=== PATIENT | female | born 2000 | race African-American/Black ===

== ENCOUNTER 2019-06-15 10:03 | Outpatient (CLI) | payer OTHER, MEDICAID, SELFPAY ==
--- NOTE | ~2019-06-15 | NM_ITS ---
EXAMINATION: NM hepatobiliary w pharm DATE: 06/15/2019 14:33 INDICATION: Abdominal pain. COMPARISON: None. TECHNIQUE: 5.27 mCi Tc-99m mebrofenin (Choletec) was administered intravenously. Scintigraphic image s of the abdomen were obtained for one hour. Then, 2.5 mcg sincalide (Kinevac) IV was administered, a nd imaging was continued for 30 minutes. FINDINGS: There is normal clearance of radiotracer from the blood pool. There is homogeneous tracer u ptake by the liver. Activity progresses to the bowel and gallbladder. Gallbladder ejection fraction (GBEF) was less than 10%. Note that most patients with gallbladder dysfunction have GBEF < 35%, which overlaps with the broad normal range of 10-90%. IMPRESSION: 1. Low gallbladder ejection fraction, consistent with gallbladder dysfunction and/or chronic cholecy stitis. Reviewed, dictated and finalized at location A. SANE IMPRESSION: 1. Low gallbladder ejection fraction, consistent with gallbladder dysfunction and/or chronic cholecystitis.
== END 2019-06-15 10:04 | disposition home or self-care (01) ==
LOC: ANHIMG 10:04
PROVIDERS: PCP Internal Medicine; Visit Provider Internal Medicine
DX: R10.9 Unspecified abdominal pain (principal)
CPT/HCPCS: 78227; A9537; J2805

== ENCOUNTER 2019-07-26 16:50 | Emergency (ER) | payer OTHER, MEDICAID, SELFPAY ==
[2019-07-26] VITALS (10 sets, daily range): BP systolic 122–155; BP diastolic 82–101; PULSE 65–87; RESP 16–18; TEMP 37.1; O2SAT 84–100
[2019-07-26] MEDS: SODIUM CHLORIDE 0.9% IV 1,000 ML 999 ML IV CONT ×2 (17:35→18:05)
[2019-07-26 17:44] LABS: Basophils Absolute Auto 0.1 K/mm3 (0.0-0.1); Basophils Percent Auto 0.8 % (0.2-1.2); Eosinophils Absolute Auto 0.9 K/mm3 (0-0.3); Eosinophils Percent Auto 6.8 % (0-4.4); Hematocrit 40.2 % (37.0-47.0); Hemoglobin 13.6 g/dL (12.0-15.0); Immature Granulocyte Percent A 0.8 % (0-0.5); Lymphocytes Absolute Auto 2.67 K/mm3 (0.9-3.2); Mean Corpuscular HGB Conc 33.8 g/dl (32-36); Mean Corpuscular Hemoglobin 26.4 pg (26-34); Mean Corpuscular Volume 78.1 fl (80-100); Mean Platelet Volume 10.7 fl (7.4-10.4); Monocytes Absolute Auto 0.8 K/mm3 (0.1-0.6); Monocytes Percent Auto 6.1 % (2.6-8.5); Neutrophils Absolute Auto 8.2 K/mm3 (1.3-6.7); Neutrophils Percent Auto 64.5 % (45.5-73.1); Platelet Count Result 337 k/mm3 (150-375); Red Blood Count 5.15 M/mm3 (4.2-5.4); Red Cell Distribution Width 13.3 % (11.5-14.5); White Blood Count 12.7 K/mm3 (4.5-10.0)
[2019-07-26 17:49] LABS: Add Urine Microscopic? YES; Appearance Urine Clear (Clear); Bacteria Urine Trace /hpf; Bilirubin Urine Negative (Negative); Blood Urine Negative (Negative); Color Urine Yellow (Yellow); Glucose Urine UA 1+ mg/dL (Negative); Ketones Urine Negative (Negative); Leukocyte Esterase Ur Negative LEU/UL (Negative); Mucus Urine Rare /lpf; Nitrate Urine Negative (Negative); Protein Urine Negative (Negative); RBC Urine 0-2 /hpf (0-2); Specific Grav Ur 1.018 (1.001-1.035); Squamous Epithelial Cell Urine Many /hpf (Few); Urobilinogen Urine Negative mg/dL (<2.0); WBC Urine 0-3 /hpf
[2019-07-26 17:54] LABS: Alanine Aminotransferase 19 U/L (4-35); Albumin Level 4.1 g/dL (3.5-5.1); Alkaline Phosphatase 109 U/L (38-126); Aspartate Amino Transferase 22 U/L (14-36); Bilirubin,Total 0.2 mg/dL (0.2-1.3); Blood Urea Nitrogen 12 mg/dL (7-17); Calcium 9.1 mg/dL (8.4-10.2); Carbon Dioxide 26 mmol/L (22-30); Chloride 102 mmol/L (98-107); Estimated CRCL calculation 173 ml/min; Estimated Glomerular Filt Rate > 60; Glucose 187 mg/dL (65-105); Lipase 39 U/L (23-300); Potassium 3.8 mmol/L (3.4-5.0); Sodium 136 mmol/L (137-145)
[2019-07-26] MEDS: ONDANSETRON INJ 4 MG/2 ML VIAL IV PUSH (18:04)
--- NOTE | 2019-07-26 18:07 | ED.ABDPAIN ---
HPI - Abdominal Pain General Chief Complaint: Abdominal Pain <Ubaldo Hayward PA-C - Last Filed: 07/26/19 19:55> Stated Complaint: abdominal pain <Ubaldo Hayward PA-C - Last Filed: 07/26/19 19:55> Time Seen by Provider: 07/26/19 17:14 <Ubaldo Hayward PA-C - Last Filed: 07/26/19 19:55> History of Present Illness HPI narrative: Patient is a 19 yo female who presents with nausea and vomiting off and on for months. Patient is scheduled to see surgery. patient notes upper abdominal pain on the right side. denies rectal bleeding or diarrhea. has not taken anything for her symptoms <Ubaldo Hayward PA-C - Last Filed: 07/26/19 19:55> Related Data Home Medications: Home Medications Medication Instructions Recorded Confirmed albuterol sulfate 2.5 mg INHALATION Q4-6H PRN 07/08/19 albuterol sulfate 90 mcg/actuation 1 puff INHALATION Q4H PRN 07/08/19 aerosol inhaler <Ubaldo Hayward PA-C - Last Filed: 07/26/19 19:55> Allergies/Adverse Reactions: Allergies Allergy/AdvReac Type Severity Reaction Status Date / Time No Known Allergies Allergy Verified 07/26/19 17:15 <Ubaldo Hayward PA-C - Last Filed: 07/26/19 19:55> Review of Systems Review of Systems: All systems reviewed & are unremarkable except as noted in HPI and below <Ubaldo Hayward PA-C - Last Filed: 07/26/19 19:55> [facility] Past Medical History Medical History: Medical History Biliary dyskinesia <Ubaldo Hayward PA-C - Last Filed: 07/26/19 19:55> Surgical History Surgical History: Surgical History History of tonsillectomy <Ubaldo Hayward PA-C - Last Filed: 07/26/19 19:55> Family History Family History: Family History (Updated 07/08/19 @ 15:43 by Fiorella Smith) Unknown Diabetes mellitus <Ubaldo Hayward PA-C - Last Filed: 07/26/19 19:55> Social History Social History: Social History Smoking status: Never smoker Alcohol intake: never Additional occupation/education comments: [employer] Gender identity (if verbalized by the patient): Female <MARYANNE Prado Last Filed: 07/26/19 19:55> Exam Const: General: no acute distress and alert <MARYANNE Prado Last Filed: 07/26/19 19:55> Orientation/consciousness: patient oriented x3 <Ubaldo Hayward PA-C Last Filed: 07/26/19 19:55> HENMT: Head: normal to inspection <MARYANNE Prado Last Filed: 07/26/19 19:55> Eyes: Conjunctivae: conjunctivae normal <MARYANNE Prado Last Filed: 07/26/19 19:55> Pupils: Equal, round and reactive pupils present <MARYANNE Prado Last Filed: 07/26/19 19:55> Resp: Effort & Inspection: normal respiratory effort <MARYANNE Prado Last Filed: 07/26/19 19:55> Auscultation: clear to auscultation bilaterally <MARYANNE Prado Last Filed: 07/26/19 19:55> Cardio: Rate: regular rate <MARYANNE Prado Last Filed: 07/26/19 19:55> Rhythm: regular rhythm <MARYANNE Prado Last Filed: 07/26/19 19:55> GI: GI Palp: Yes Soft to palpation <MARYANNE Prado Last Filed: 07/26/19 19:55> Other: patient with mild tenderness of the abdomen in the upper quadrants no rebound or guarding <MARYANNE Prado Last Filed: 07/26/19 19:55> : General: Yes no CVA tenderness <MARYANNE Prado Last Filed: 07/26/19 19:55> Skin: General skin exam: normal color <MARYANNE Prado Last Filed: 07/26/19 19:55> Rashes: no rashes <MARYANNE Prado Last Filed: 07/26/19 19:55> Neuro: General: patient oriented x3 and moves all extremities <Ubaldo Hayward PA-C - Last Filed: 07/26/19 19:55> Extrem: General: normal to inspection <MARYANNE Prado Last Filed: 07/26/19 19:55> Psych: Appearance: grossly no
== END 2019-07-26 20:01 | disposition home or self-care (01) ==
PROVIDERS: Emergency Medicine Emergency Medical Services; Emergency Provider Emergency Medicine; PCP Internal Medicine
DX: R10.11 Right upper quadrant pain (principal); K82.8 Other specified diseases of gallbladder
CPT/HCPCS: 36415; 80053; 81001; 81025; 83690; 85025; 96361; 96365; 96375; 99284; J0131; J2405; J7030

== ENCOUNTER 2019-08-09 07:38 | Outpatient (CLI) | payer OTHER, MEDICAID, SELFPAY ==
--- NOTE | ~2019-08-09 | US_ITS ---
US abdomen limited DATE: 08/09/2019 08:15 INDICATION: Right upper quadrant abdominal pain TECHNIQUE: Real-time imaging of liver, pancreas, gallbladder areas, Doppler analysis COMPARISON: 06/15/2019 radionuclide hepatobiliary scan FINDINGS: No gallstones or gallbladder wall thickening or abnormal pericholecystic fluid collection. Negative sonographic Davies's sign. The common bile duct measures 3.8 mm, within normal range. Hepatic steatosis. Normal hepatic portal venous flow direction. No pancreatic mass lesion is evident. IMPRESSION: Hepatic steatosis Reviewed, dictated and finalized at [facility]. Reviewed, dictated and finalized at location A. IMPRESSION: Hepatic steatosis
== END 2019-08-09 07:39 | disposition home or self-care (01) ==
PROVIDERS: PCP Internal Medicine; Visit Provider Surgery
DX: R10.11 Right upper quadrant pain (principal); R94.8 Abnormal results of function studies of other organs and systems; K76.0 Fatty (change of) liver, not elsewhere classified
CPT/HCPCS: 76705

== ENCOUNTER 2019-08-16 06:11 | Day surgery (SDC) | payer OTHER, MEDICAID, SELFPAY ==
[2019-08-13 10:49] VITALS: BMI 45.8
[2019-08-16] VITALS (11 sets, daily range): BP systolic 109–128; BP diastolic 55–87; PULSE 57–116; RESP 14–21; TEMP 36.2–36.4; O2SAT 96–100; BMI 47.7
--- NOTE | 2019-08-16 08:55 | WPDANESEPPF ---
Anes - Initial Pre Proc Eval Procedure: Operation Date: 08/16/19 10:00 Proposed Procedures p Laparoscopic Cholecystectomy, Possible Open - Ricardo Rojas DO Date/Time: 08/16/19 08:55 Surgeon: Ricardo Rojas DO Pre Op Diagnosis: Biliary Dyskinesia Patient Data Age: 19 Gender: F Height: 5 ft 5.75 in Weight: 127.7 kg Allergies Allergy/AdvReac Type Severity Reaction Status Date / Time No Known Allergies Allergy Verified 08/13/19 10:35 Home Medications Medication Instructions Recorded Confirmed Type albuterol sulfate 2.5 mg INHALATION Q4-6H PRN 07/08/19 08/13/19 History albuterol sulfate 90 mcg/actuation 1 puff INHALATION Q4H PRN 07/08/19 08/13/19 History aerosol inhaler ibuprofen 800 mg tablet 800 mg PO BID PRN tablet 08/02/19 08/13/19 History sumatriptan succinate 100 mg tablet ea PO 08/02/19 History Patient hx anesthesia problems: none Family hx anesthesia problems: none [facility] Past Medical History Medical History Biliary dyskinesia Surgical History Surgical History History of tonsillectomy Family History Family History Unknown Diabetes mellitus Social History Social History Smoking status: Never smoker Alcohol intake: never Additional occupation/education comments: [employer] Gender identity (if verbalized by the patient): Female Anes - Eval Final PreProcedure Day of Procedure 08/16/19 08:55 Patient weight: morbidly obese Heart: regular rate and rhythm Lungs: clear to auscultation Airway: Mallampati scale class II Neurological: alert and oriented Last oral intake: >/= 8 hours ASA classification: III Emergent: no Anesthetic plan: proceed Anesthesia type and monitoring: general ETT and standard monitoring Informed Consent: The patient's anesthetic plan and its attendant risks and benefits were discussed with the patient/family/POA. Questions were solicited and answers provided to the satisfaction of the patient/family/POA.
--- NOTE | 2019-08-16 09:37 | WPDHPUPDATE1 ---
History and Physical Update Update Date/Time: 08/16/19 09:37 History and Physical has been reviewed, including an updated exam of the patient. There are NO changes in the patient's condition. Risks, benefits, and alternatives have been discussed and questions answered. Patient agrees to proceed with procedure.
[2019-08-16] MEDS: IBUPROFEN IV 800 MG/200 ML 800 MG/200 ML BAG 400 MG IVPB (09:58)
[2019-08-16] MEDS: LACTATED RINGERS 1,000 ML 30 ML IV CONT (09:58)
[2019-08-16 10:11] LABS: Alanine Aminotransferase 20 U/L (4-35); Alkaline Phosphatase 126 U/L (38-126); Aspartate Amino Transferase 24 U/L (14-36); Bilirubin,Total 0.4 mg/dL (0.2-1.3); Blood Urea Nitrogen 10 mg/dL (7-17); Calcium 8.9 mg/dL (8.4-10.2); Carbon Dioxide 26 mmol/L (22-30); Chloride 102 mmol/L (98-107); Estimated CRCL calculation 207 ml/min; Estimated Glomerular Filt Rate > 60; Glucose 232 mg/dL (65-105); Potassium 4.2 mmol/L (3.4-5.0); Sodium 134 mmol/L (137-145)
[2019-08-16] MEDS: ceFAZolin 3 GM/D5W 100 ML 100 ML IVPB (10:15)
[2019-08-16 10:36] LABS: Alanine Aminotransferase 19 U/L (4-35); Alkaline Phosphatase 124 U/L (38-126); Amylase 65 U/L (30-110); Aspartate Amino Transferase 24 U/L (14-36); Bilirubin,Total 0.4 mg/dL (0.2-1.3); Lipase 33 U/L (23-300)
[2019-08-16] MEDS: BUPIVACAINE/EPINEPHRINE 0.5% 30 ML VIAL INFILTRATE (10:43)
--- NOTE | 2019-08-16 10:52 | SUR.OPER ---
EBL 5CC
--- NOTE | 2019-08-16 11:19 | PM.PROC ---
Procedure Note - Detailed Date of procedure: 08/16/19 Pre-op diagnosis: Biliary Dyskinesia Post-op diagnosis: same Procedure performed: Laparoscopic Cholecystectomy Description of procedure: Procedure as well as risks, benefits, and alternatives were discussed with patient. Written consent was obtained and placed in chart prior to procedure. The patient was brought back to surgical suite. Patient was placed in supine position on operating table. Time-out was done to confirm patient and procedure. Patient was then intubated by the anesthesia department. Abdomen was prepped and draped in sterile fashion using chlorhexidine prep. 0.5% bupivacaine with epinephrine was infiltrated at each site of incision. A 5 millimeter incision was made near the umbilicus, and a 5 millimeter Optiview trocar was advanced through the abdominal layers under direct visualization. Once inside the abdominal cavity, carbon dioxide was insufflated to create a pneumoperitoneum. The camera was inserted and the abdomen was inspected. No immediate abnormalities were identified. The patient was placed in reverse Trendelenburg position and rotated slightly to the left. An 11 millimeter incision was made in the subxiphoid region, and an 11 millimeter trocar was inserted under direct visualization. Two 5 millimeter incisions were made in the right upper quadrant, and two 5 millimeter trocars were inserted under direct visualization. The gallbladder was identified and grasped at the fundus and retracted superiorly. It was then grasped at the infundibulum retracted laterally. Careful dissection around the neck of the gallbladder was performed using blunt dissection with a [place] grasper and hook electrocautery. The cystic duct was identified, and a window was created behind it. The cystic artery was also identified and a window was created behind it. The critical view of safety was identified, visualizing the cystic duct running directly into the neck of the gallbladder, and the cystic artery running directly into the wall of the gallbladder. A 5 millimeter clip photo engraver was then used to place 2 clips proximally and 1 clip distally on both the cystic duct and cystic artery. They were then both transected using endoscopic scissors. Once safely away from the lakshmi hepatitis, the gallbladder was dissected free from the liver bed using hook electrocautery. Hemostasis was achieved along the way. The gallbladder was removed completely and then removed through the subxiphoid port. The liver bed was then inspected. Hemostasis appeared adequate, and our clips appeared secure. The area was gently irrigated with sterile saline. No other abnormalities were seen. The patient was flattened out in bed, and 1 final inspection was made around the abdominal cavity. The subxiphoid port was removed, and a Maikol Fatoumata cone was used to approximate the fascia with an 0-Vicryl simple interrupted suture. The remaining ports were then removed under direct visualization, the camera was removed, and the pneumoperitoneum was released. The skin of the incisions was approximated using 4-0 Monocryl subcuticular sutures. Exofin glue was applied on top. The patient was then awakened from anesthesia, extubated, and transferred to recovery. Anesthesia: GETA and local (0.5% bupivicaine with epi) Surgeon: Ricardo Rojas DO Estimated blood loss (mL): 5 Drains: No Packing: No Pathology: yes Complications: No immediate complications Condition: stable (Patient tolerated procedure well, and is currently resting comfortably in recovery.) Disposition: same day Findings: This is a 19-year-old woman who presented with intermittent upper abdominal pain for the past 3 months. She has been experiencing episodes of nausea and vomiting as well. She had a HIDA scan done as an outpatient and this showed evidence of decreased gallbladder ejection fraction at less than 10%. A gallbladder ultrasound was obtained and this yue
== END 2019-08-16 13:55 | disposition home or self-care (01) ==
PROVIDERS: PCP Internal Medicine; Visit Provider Surgery
PROC: 0FT44ZZ Resection of Gallbladder, Percutaneous Endoscopic Approach (ICD-10-PCS; CPT 47562; principal; 2019-08-16 10:00)
DX: K80.10 Calculus of gallbladder with chronic cholecystitis without obstruction (principal); E66.01 Morbid (severe) obesity due to excess calories; Z68.42 Body mass index [BMI] 45.0-49.9, adult
CPT/HCPCS: 47562; 36415; 80053; 80076; 82150; 82248; 83690; 86850; 86900; 86901; 88304; A9270; J0131; J0330; J0690; J1100; J1741; J2250; J2405; J2704; J2710; J3010; J7030; J7120

== ENCOUNTER 2019-08-27 08:39 | Outpatient (CLI) | payer OTHER, MEDICAID, SELFPAY ==
--- NOTE | ~2019-08-27 | US_ITS ---
EXAMINATION: US venous doppler [facility] DATE: 08/27/2019 18:13 INDICATION: Left lower limb pain TECHNIQUE: Kamara scale images without and with compression and Doppler images of the left lower extrem ity veins were obtained. COMPARISON: None FINDINGS: The left common femoral vein, profunda femoral vein, femoral vein, popliteal vein, peroneal trunk, posterior tibial veins, and greater saphenous vein are patent. IMPRESSION: 1. Patent left lower extremity veins. No evidence of deep venous thrombosis. Reviewed, dictated and finalized at location A.
[2019-08-27 09:00] LABS: Basophils Absolute Auto 0.1 K/mm3 (0.0-0.1); Basophils Percent Auto 0.8 % (0.2-1.2); Eosinophils Percent Auto 6.9 % (0-4.4); Hematocrit 39.8 % (37.0-47.0); Hemoglobin 13.7 g/dL (12.0-15.0); Immature Granulocyte Absolute 0.09 K/mm3 (0.00-0.031); Immature Granulocyte Percent A 0.6 % (0-0.5); Lymphocytes Absolute Auto 2.83 K/mm3 (0.9-3.2); Lymphocytes Percent Auto 19.3 % (18.3-44.2); Mean Corpuscular HGB Conc 34.4 g/dl (32-36); Mean Corpuscular Hemoglobin 26.5 pg (26-34); Mean Platelet Volume 10.3 fl (7.4-10.4); Monocytes Percent Auto 6.9 % (2.6-8.5); Neutrophils Absolute Auto 9.6 K/mm3 (1.3-6.7); Neutrophils Percent Auto 65.5 % (45.5-73.1); Platelet Count Result 419 k/mm3 (150-375); Red Blood Count 5.17 M/mm3 (4.2-5.4); Red Cell Distribution Width 13.3 % (11.5-14.5); White Blood Count 14.7 K/mm3 (4.5-10.0)
[2019-08-27 09:13] LABS: Alanine Aminotransferase 20 U/L (4-35); Albumin Level 4.2 g/dL (3.5-5.1); Alkaline Phosphatase 123 U/L (38-126); Aspartate Amino Transferase 20 U/L (14-36); Bilirubin,Total 0.4 mg/dL (0.2-1.3); Blood Urea Nitrogen 12 mg/dL (7-17); Calcium 9.3 mg/dL (8.4-10.2); Carbon Dioxide 29 mmol/L (22-30); Chloride 103 mmol/L (98-107); Estimated Glomerular Filt Rate > 60; Glucose 197 mg/dL (65-105); Potassium 4.2 mmol/L (3.4-5.0); Sodium 138 mmol/L (137-145)
== END 2019-08-27 08:40 | disposition home or self-care (01) ==
PROVIDERS: PCP Internal Medicine; Visit Provider Nurse Practitioner Family
DX: M79.662 Pain in left lower leg (principal); K80.10 Calculus of gallbladder with chronic cholecystitis without obstruction
CPT/HCPCS: 36415; 80053; 85025; 93971

== ENCOUNTER 2019-09-10 11:04 | Outpatient (CLI) | payer OTHER, MEDICAID, SELFPAY ==
--- NOTE | ~2019-09-10 | CT_ITS ---
EXAMINATION: CT abdomen pelvis w con INDICATION: Calculus of the gallbladder with chronic cholecystitis, right upper quadrant pain TECHNIQUE: Computed tomographic images of the abdomen and pelvis were obtained after the administrati on of 100 cc of Omnipaque 350 intravenous contrast. The dose-length product (DLP) was 1533.45 mGy-cm. Automated exposure control and iterative reconstruction technique were employed. COMPARISON: None available FINDINGS: The lung bases are clear. The heart size is normal. There is a small sliding hiatal hernia. The gallbladder is surgically absent. The liver is diffusely low in attenuation when compared with t he spleen, consistent with hepatic steatosis. The spleen, pancreas, and adrenal glands are normal. Th e kidneys are unremarkable. No pathologically enlarged abdominal or pelvic lymph nodes are identified . There is no free intraperitoneal gas or evidence of bowel obstruction. IMPRESSION: 1. No CT correlate for the patient's symptoms. Reviewed, dictated and finalized at location A.
== END 2019-09-10 11:05 | disposition home or self-care (01) ==
PROVIDERS: PCP Internal Medicine; Visit Provider Nurse Practitioner Family
DX: R10.11 Right upper quadrant pain (principal); K80.10 Calculus of gallbladder with chronic cholecystitis without obstruction
CPT/HCPCS: 74177; Q9967

== ENCOUNTER 2020-02-01 15:02 | Emergency (ER) | payer OTHER, MEDICAID, SELFPAY ==
--- NOTE | ~2020-02-01 | XR_ITS ---
EXAMINATION: XR chest 2V DATE: 02/01/2020 15:29 INDICATION: Shortness of breath, bronchitis TECHNIQUE: PA and lateral views of the chest are obtained. COMPARISON: None available FINDINGS: There are minimal airspace opacities of the left lower lobe. There is no pleural effusion o r pneumothorax. The cardiomediastinal silhouette is normal. The visualized bones and soft tissues are unremarkable. IMPRESSION: 1. Minimal left lower lobe airspace opacity, consistent with atelectasis versus pneumonia. Reviewed, dictated and finalized at location A.
[2020-02-01 15:03] VITALS: BP 156/100; PULSE 104; RESP 18; TEMP 36.7; O2SAT 98
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
[2020-02-01] MEDS: SODIUM CHLORIDE 0.9% IV 1,000 ML 999 ML IV CONT (16:02)
[2020-02-01 16:08] LABS: Basophils Absolute Auto 0.1 K/mm3 (0.0-0.1); Basophils Percent Auto 0.2 % (0.2-1.2); Hematocrit 39.7 % (37.0-47.0); Hemoglobin 13.6 g/dL (12.0-15.0); Immature Granulocyte Absolute 0.17 K/mm3 (0.00-0.031); Immature Granulocyte Percent A 0.8 % (0-0.5); Lymphocytes Absolute Auto 0.77 K/mm3 (0.9-3.2); Lymphocytes Percent Auto 3.4 % (18.3-44.2); Mean Corpuscular HGB Conc 34.3 g/dl (32-36); Mean Corpuscular Hemoglobin 26.4 pg (26-34); Mean Corpuscular Volume 76.9 fl (80-100); Mean Platelet Volume 10.2 fl (7.4-10.4); Monocytes Absolute Auto 0.3 K/mm3 (0.1-0.6); Monocytes Percent Auto 1.3 % (2.6-8.5); Neutrophils Absolute Auto 21.2 K/mm3 (1.3-6.7); Neutrophils Percent Auto 94.3 % (45.5-73.1); Platelet Count Result 436 k/mm3 (150-375); Red Blood Count 5.16 M/mm3 (4.2-5.4); Red Cell Distribution Width 13.9 % (11.5-14.5); White Blood Count 22.5 K/mm3 (4.5-10.0)
[2020-02-01 16:19] LABS: Anion Gap 10 mmol/L (8-16); Blood Urea Nitrogen 18 mg/dL (7-17); Calcium 9.7 mg/dL (8.4-10.2); Carbon Dioxide 21 mmol/L (22-30); Chloride 108 mmol/L (98-107); Estimated CRCL calculation 137 ml/min; Estimated Glomerular Filt Rate > 60; Glucose 282 mg/dL (65-105); Potassium 4.1 mmol/L (3.4-5.0); Sodium 139 mmol/L (137-145)
[2020-02-01 16:47] VITALS: BP 129/82; PULSE 90; RESP 20; O2SAT 99
[2020-02-01] MEDS: AMOXICILLIN/CLAVULANATE K 875-125 MG TAB 1 TABLET PO (17:18)
[2020-02-01 17:38] VITALS: BP 140/76; PULSE 92; RESP 18; O2SAT 99
== END 2020-02-01 17:40 | disposition home or self-care (01) ==
PROVIDERS: Emergency Provider Emergency Medicine; PCP Internal Medicine
DX: S20.214A Contusion of middle front wall of thorax, initial encounter (principal); J18.9 Pneumonia, unspecified organism; E11.65 Type 2 diabetes mellitus with hyperglycemia; W51.XXXA Accidental striking against or bumped into by another person, initial encounter
CPT/HCPCS: 36415; 71046; 80048; 85025; 96360; 99283; A9270; J7030